=== PATIENT | female | born 1945 | race Caucasian/White ===

== ENCOUNTER → 2023-10-24 07:45 | Outpatient (REF) | payer OTHER, SELFPAY ==
[2023-10-24 09:04] LABS: % Basophils 0.6 % (0-2); % Eosinophils 1.4 % (0-6); % Immature Granulocytes 0.8 % (0-0.5); % Monocytes 10.7 % (1.7-9.3); % Neutrophils 55.5 % (42.2-75.2); Absolute Eosinophils 0.1 10^3/uL (0-0.7); Absolute Immature Granulocytes 0.1 10^3/uL (0-0.05); Absolute Lymphocytes 2.2 10^3/uL (1.2-3.4); Absolute Monocytes 0.8 10^3/uL (0.1-0.6); Hematocrit 39.2 % (37.0-47.0); Mean Corp Hgb Conc. 33.2 g/dL (33.0-37.0); Mean Corpuscular Hgb 30.4 pg (27.0-31.0); Mean Corpuscular Volume 91.6 fL (81.0-99.0); Mean Platelet Volume 10.8 fL (7.4-10.4); Nucleated Red Blood Cells % 0 %; Platelet Count 255 10^3/uL (130-400); Red Blood Cell Count 4.28 10^6/uL (4.20-5.40); Red Cell Dist. Width 13.9 % (11.5-14.5); White Blood Cell Count 7.1 10^3/uL (4.8-10.8)
[2023-10-24 09:30] LABS: ALT (SGPT) 23 U/L (0-35); AST (SGOT) 26 U/L (14-36); Alkaline Phosphatase 91 U/L (38-126); Blood Urea Nitrogen 20 mg/dl (7-17); Calcium 10.1 mg/dl (8.4-10.2); Carbon Dioxide 27 mmol/L (22-30); Chloride 103 mmol/L (98-107); Glucose 91 mg/dl (70-99); HDL Cholesterol 70 mg/dl; LDL Cholesterol, Calculated 98 mg/dl; Potassium 4.3 mmol/L (3.5-5.1); Sodium 138 mmol/L (135-145); Total Bilirubin 0.5 mg/dl (0.2-1.3); Total Cholesterol 193 mg/dl (50-199); Total Protein 6.3 g/dl (6.3-8.2); Triglyceride 125 mg/dl (10-149); Very Low Density Lipoprotein 25 mg/dl (0-30); eGFR 57.66
[2023-10-24 10:00] LABS: Vitamin D, 25-OH*** 53.9 ng/mL (30-80)
[2023-10-24 10:14] LABS: TSH 2.87 uIU/ml (0.47-4.68)
[2023-10-24 10:50] LABS: Folate > 20.0 ng/ml (2.76-20); Vitamin B12 731 pg/ml (239-931)
[2023-10-25 19:49] LABS: Beta-2-Microglobulin 2.1 mg/L (<=3.0)
[2023-10-27 13:28] LABS: Albumin 3.99 g/dL (3.75-5.01); Alpha 1 Globulin 0.29 g/dL (0.19-0.46); Alpha 2 Globulin 0.78 g/dL (0.48-1.05); Free Lambda Light Chains,Quant 12.79 mg/L (5.71-26.30); IgA 61 mg/dL (68-408); IgG 602 mg/dL (768-1632); IgM 216 mg/dL (35-263); Immunofixation Electrophoresis IFE Done; Kappa/Lambda Fr Light Ratio 1.67 (0.26-1.65); Total Protein-Electrophoresis 6.4 g/dL (6.3-8.2)
== END ==
LOC: HWLAB 07:45
PROVIDERS: ATTENDING PHYSICIAN Internal Medicine Hematology & Oncology; FAMILY PHYSICIAN Internal Medicine Geriatric Medicine; OTHER PHYSICIAN Physician Assistant Medical; REFERRING PHYSICIAN Internal Medicine Rheumatology
DX: R35.0 Frequency of micturition (principal); K21.9 Gastro-esophageal reflux disease without esophagitis; K58.9 Irritable bowel syndrome, unspecified; R68.89 Other general symptoms and signs; K57.32 Diverticulitis of large intestine without perforation or abscess without bleeding; E55.9 Vitamin D deficiency, unspecified; R41.9 Unspecified symptoms and signs involving cognitive functions and awareness; M16.11 Unilateral primary osteoarthritis, right hip; M51.36 Other intervertebral disc degeneration, lumbar region; Z13.89 Encounter for screening for other disorder; G31.84 Mild cognitive impairment of uncertain or unknown etiology; D47.2 Monoclonal gammopathy; K21.00 Gastro-esophageal reflux disease with esophagitis, without bleeding; M81.0 Age-related osteoporosis without current pathological fracture; Z51.81 Encounter for therapeutic drug level monitoring
CPT/HCPCS: 36415; 80053; 80061; 82232; 82306; 82607; 82746; 82784; 83521; 84155; 84165; 84443; 85025; 86334

== ENCOUNTER → 2024-03-07 10:33 | Outpatient (REF) | payer OTHER, SELFPAY | LOC: HWWDC 10:33 | PROVIDERS: ATTENDING PHYSICIAN Internal Medicine Geriatric Medicine | DX: Z12.31 Encounter for screening mammogram for malignant neoplasm of breast (principal) | CPT/HCPCS: 77063; 77067 ==

== ENCOUNTER → 2024-04-30 08:04 | Outpatient (REF) | payer OTHER, SELFPAY ==
[2024-04-30 09:54] LABS: % Basophils 0.3 % (0-2); % Eosinophils 1.5 % (0-6); % Immature Granulocytes 2.3 % (0-0.5); % Lymphocytes 22.1 % (20.5-51.1); % Monocytes 9.1 % (1.7-9.3); % Neutrophils 64.7 % (42.2-75.2); Absolute Eosinophils 0.1 10^3/uL (0-0.7); Absolute Immature Granulocytes 0.2 10^3/uL (0-0.05); Absolute Monocytes 0.8 10^3/uL (0.1-0.6); Absolute Neutrophils 5.7 10^3/uL (1.4-6.5); Hematocrit 38.8 % (37.0-47.0); Mean Corp Hgb Conc. 33.5 g/dL (33.0-37.0); Mean Corpuscular Hgb 30.9 pg (27.0-31.0); Mean Corpuscular Volume 92.2 fL (81.0-99.0); Mean Platelet Volume 10.2 fL (7.4-10.4); Nucleated Red Blood Cells % 0 %; Platelet Count 262 10^3/uL (130-400); Red Blood Cell Count 4.21 10^6/uL (4.20-5.40); White Blood Cell Count 8.9 10^3/uL (4.8-10.8)
[2024-04-30 10:31] LABS: ALT (SGPT) 26 U/L (0-35); AST (SGOT) 24 U/L (14-36); Albumin 3.8 g/dl (3.5-5.0); Alkaline Phosphatase 93 U/L (38-126); Blood Urea Nitrogen 23 mg/dl (7-17); Calcium 9.9 mg/dl (8.4-10.2); Carbon Dioxide 30 mmol/L (22-30); Chloride 101 mmol/L (98-107); Glucose 83 mg/dl (70-99); HDL Cholesterol 91 mg/dl; LDL Cholesterol, Calculated 116 mg/dl; Potassium 4.4 mmol/L (3.5-5.1); Sodium 139 mmol/L (135-145); Total Bilirubin 0.4 mg/dl (0.2-1.3); Total Cholesterol 225 mg/dl (50-199); Total Protein 6.1 g/dl (6.3-8.2); Triglyceride 92 mg/dl (10-149); Very Low Density Lipoprotein 18 mg/dl (0-30); eGFR > 60.00
[2024-04-30 10:51] LABS: Vitamin D, 25-OH*** 54.4 ng/mL (30-80)
[2024-04-30 11:32] LABS: Folate > 20.0 ng/ml (2.76-20); Vitamin B12 623 pg/ml (239-931)
[2024-04-30 12:59] LABS: Urine Albumin Negative (Neg - Trace); Urine Bilirubin Negative (Negative); Urine Character Clear (Clear); Urine Color Yellow; Urine Glucose Negative (Negative); Urine Ketone Negative (Negative); Urine Leukocyte 2+ (Negative); Urine Nitrite Negative (Negative); Urine Occult Blood Negative (Negative); Urine Urobilinogen Negative (Neg - 1+)
[2024-04-30 13:42] LABS: Urine Bacteria Few (Negative); Urine Red Blood Cell 0-2 /HPF (0-2)
== END ==
LOC: HWLAB 08:04
PROVIDERS: ATTENDING PHYSICIAN Internal Medicine Rheumatology; FAMILY PHYSICIAN Internal Medicine Geriatric Medicine
DX: Z00.00 Encounter for general adult medical examination without abnormal findings (principal); F33.1 Major depressive disorder, recurrent, moderate; K21.9 Gastro-esophageal reflux disease without esophagitis; E78.5 Hyperlipidemia, unspecified; E55.9 Vitamin D deficiency, unspecified; R41.89 Other symptoms and signs involving cognitive functions and awareness; M54.16 Radiculopathy, lumbar region; Z13.89 Encounter for screening for other disorder; Z23 Encounter for immunization; M81.0 Age-related osteoporosis without current pathological fracture; Z51.81 Encounter for therapeutic drug level monitoring
CPT/HCPCS: 36415; 80053; 80061; 81003; 81015; 82306; 82607; 82746; 85025

== ENCOUNTER → 2024-07-03 13:16 | Outpatient (REF) | payer OTHER, SELFPAY | LOC: HWRAD 13:16 | PROVIDERS: ATTENDING PHYSICIAN Internal Medicine Rheumatology; FAMILY PHYSICIAN Internal Medicine Geriatric Medicine; REFERRING PHYSICIAN Obstetrics & Gynecology Gynecology | DX: M81.0 Age-related osteoporosis without current pathological fracture (principal) | CPT/HCPCS: 77080 ==

== ENCOUNTER → 2024-08-04 08:22 | Outpatient (REF) | payer OTHER, SELFPAY | LOC: PAVMRI 08:22 | PROVIDERS: ATTENDING PHYSICIAN Specialist; FAMILY PHYSICIAN Internal Medicine Geriatric Medicine; REFERRING PHYSICIAN Psychiatry & Neurology Neurology | DX: M54.16 Radiculopathy, lumbar region (principal) | CPT/HCPCS: 72148 ==

== ENCOUNTER → 2024-08-13 08:58 | Outpatient (REF) | payer OTHER, SELFPAY ==
[2024-08-13 10:15] LABS: Iron 105 ug/dl (37-170)
[2024-08-13 10:24] LABS: Percent Saturation 36 % (20-50); Total Iron Binding Capacity 288 ug/dl (265-497)
[2024-08-13 10:30] LABS: Vitamin D, 25-OH*** 57.1 ng/mL (30-80)
[2024-08-13 10:39] LABS: Erythrocyte Sed Rate 10 mm/hour (0-20)
[2024-08-13 11:20] LABS: Folate > 20.0 ng/ml (2.76-20); Vitamin B12 742 pg/ml (239-931)
[2024-08-14 15:38] LABS: Angiotensin-1-converting Enzym 48 U/L (16-85)
[2024-08-15 03:52] LABS: Vitamin D 1,25 Dihydroxy 72.3 pg/mL (19.9-79.3)
[2024-08-15 07:13] LABS: SSA 52 (Ro)(ENA) Ab, IgG 1 AU/mL (0-40); SSA 60 (Ro)(ENA) Ab, IgG 0 AU/mL (0-40); SSB (La)(ENA) Ab, IgG 0 AU/mL (0-40)
[2024-08-15 16:26] LABS: Lyme Antibody Screen, EIA Negative (Negative)
[2024-08-15 21:43] LABS: IgA 52 mg/dL (68-408); IgG 526 mg/dL (768-1632); IgM 229 mg/dL (35-263)
[2024-08-16 03:43] LABS: Albumin 3.92 g/dL (3.75-5.01); Alpha 1 Globulin 0.29 g/dL (0.19-0.46); Alpha 2 Globulin 0.73 g/dL (0.48-1.05); SPEP IFE Reflex IFE Done; Total Protein-Electrophoresis 6.2 g/dL (6.3-8.2)
[2024-08-16 07:23] LABS: Vitamin B6 Results 175.9 nmol/L (20.0-125.0)
== END ==
LOC: REG 08:58
PROVIDERS: ATTENDING PHYSICIAN Psychiatry & Neurology Neurology; FAMILY PHYSICIAN Internal Medicine Geriatric Medicine
DX: M54.16 Radiculopathy, lumbar region (principal)
CPT/HCPCS: 36415; 82164; 82306; 82607; 82652; 82746; 82784; 83540; 83550; 84155; 84165; 84207; 84425; 84446; 85652; 86235; 86334; 86618

== ENCOUNTER → 2024-10-29 08:16 | Outpatient (REF) | payer OTHER, SELFPAY ==
[2024-10-29 11:25] LABS: ALT (SGPT) 15 U/L (0-35); AST (SGOT) 22 U/L (14-36); Albumin 4.2 g/dl (3.5-5.0); Alkaline Phosphatase 77 U/L (38-126); Blood Urea Nitrogen 18 mg/dl (7-17); Calcium 9.6 mg/dl (8.4-10.2); Carbon Dioxide 26 mmol/L (22-30); Chloride 104 mmol/L (98-107); Glucose 93 mg/dl (70-99); Potassium 4.4 mmol/L (3.5-5.1); Sodium 140 mmol/L (135-145); Total Bilirubin 0.6 mg/dl (0.2-1.3); Total Protein 6.3 g/dl (6.3-8.2); eGFR > 60.00
[2024-10-29 11:26] LABS: % Basophils 0.7 % (0-2); % Eosinophils 1.5 % (0-6); % Immature Granulocytes 0.4 % (0-0.5); % Lymphocytes 26.5 % (20.5-51.1); % Monocytes 9.7 % (1.7-9.3); % Neutrophils 61.2 % (42.2-75.2); Absolute Basophils 0.1 10^3/uL (0-0.2); Absolute Eosinophils 0.1 10^3/uL (0-0.7); Absolute Lymphocytes 1.8 10^3/uL (1.2-3.4); Absolute Monocytes 0.7 10^3/uL (0.1-0.6); Absolute Neutrophils 4.2 10^3/uL (1.4-6.5); Hematocrit 39.3 % (37.0-47.0); Hemoglobin 12.9 g/dL (12.0-16.0); Mean Corp Hgb Conc. 32.8 g/dL (33.0-37.0); Mean Corpuscular Hgb 29.9 pg (27.0-31.0); Mean Corpuscular Volume 91.2 fL (81.0-99.0); Mean Platelet Volume 11.2 fL (7.4-10.4); Nucleated Red Blood Cells % 0 %; Platelet Count 245 10^3/uL (130-400); Red Blood Cell Count 4.31 10^6/uL (4.20-5.40); White Blood Cell Count 6.8 10^3/uL (4.8-10.8)
[2024-10-29 11:41] LABS: Vitamin D, 25-OH*** 58.6 ng/mL (30-80)
[2024-10-31 12:55] LABS: Beta-2-Microglobulin 2.2 mg/L (<=3.0)
== END ==
LOC: HWLAB 08:16
PROVIDERS: ATTENDING PHYSICIAN Internal Medicine Hematology & Oncology; FAMILY PHYSICIAN Internal Medicine Geriatric Medicine; REFERRING PHYSICIAN Internal Medicine Rheumatology
DX: E55.9 Vitamin D deficiency, unspecified (principal); M81.0 Age-related osteoporosis without current pathological fracture; D47.2 Monoclonal gammopathy
CPT/HCPCS: 36415; 80053; 82232; 82306; 82784; 83521; 84155; 84165; 85025; 86334

== ENCOUNTER → 2024-11-06 10:43 | Outpatient (REF) | payer OTHER, SELFPAY | LOC: HWRAD 10:43 | PROVIDERS: ATTENDING PHYSICIAN Nurse Practitioner Adult Health; FAMILY PHYSICIAN Internal Medicine Geriatric Medicine; REFERRING PHYSICIAN Orthopaedic Surgery Orthopaedic Surgery of the Spine | DX: M48.062 Spinal stenosis, lumbar region with neurogenic claudication (principal); M54.16 Radiculopathy, lumbar region; M47.816 Spondylosis without myelopathy or radiculopathy, lumbar region | CPT/HCPCS: 72110; 72131 ==

== ENCOUNTER → 2024-12-20 14:19 | Outpatient (REF) | payer OTHER, SELFPAY | LOC: RAD 14:19 | PROVIDERS: ATTENDING PHYSICIAN Internal Medicine Geriatric Medicine; REFERRING PHYSICIAN Internal Medicine Cardiovascular Disease | DX: I70.0 Atherosclerosis of aorta (principal) | CPT/HCPCS: 76770 ==

== ENCOUNTER → 2025-02-04 08:07 | Outpatient (REF) | payer OTHER, SELFPAY | LOC: HWRCS 08:07 | PROVIDERS: ATTENDING PHYSICIAN Internal Medicine Cardiovascular Disease; FAMILY PHYSICIAN Internal Medicine Geriatric Medicine | DX: I70.0 Atherosclerosis of aorta (principal); Z82.49 Family history of ischemic heart disease and other diseases of the circulatory system; E78.5 Hyperlipidemia, unspecified | CPT/HCPCS: 93306 ==

== ENCOUNTER → 2025-03-11 09:41 | Outpatient (REF) | payer OTHER, SELFPAY | LOC: HWWDC 09:41 | PROVIDERS: ATTENDING PHYSICIAN Obstetrics & Gynecology; FAMILY PHYSICIAN Internal Medicine Geriatric Medicine | DX: Z12.31 Encounter for screening mammogram for malignant neoplasm of breast (principal) | CPT/HCPCS: 77063; 77067 ==

== ENCOUNTER → 2025-03-19 08:58 | Outpatient (REF) | payer OTHER, SELFPAY | LOC: WDC 08:58 | PROVIDERS: ATTENDING PHYSICIAN Obstetrics & Gynecology; FAMILY PHYSICIAN Internal Medicine Geriatric Medicine | DX: R92.8 Other abnormal and inconclusive findings on diagnostic imaging of breast (principal) | CPT/HCPCS: 76642 ==

== ENCOUNTER → 2025-03-27 08:43 | Outpatient (REF) | payer OTHER, SELFPAY ==
[2025-03-27 12:13] LABS: Hematocrit 41.0 % (37.0-47.0); Hemoglobin 13.5 g/dL (12.0-16.0); Mean Corp Hgb Conc. 32.9 g/dL (33.0-37.0); Mean Corpuscular Volume 90.7 fL (81.0-99.0); Nucleated Red Blood Cells % 0 %; Platelet Count 271 10^3/uL (130-400); Red Cell Dist. Width 14.4 % (11.5-14.5)
[2025-03-27 12:20] LABS: Urine Character Clear (Clear)
[2025-03-27 12:44] LABS: ALT (SGPT) 24 U/L (0-35); AST (SGOT) 21 U/L (14-36); Albumin 4.4 g/dl (3.5-5.0); Alkaline Phosphatase 65 U/L (38-126); Blood Urea Nitrogen 28 mg/dl (7-17); Calcium 9.8 mg/dl (8.4-10.2); Carbon Dioxide 29 mmol/L (22-30); Chloride 103 mmol/L (98-107); Glucose 86 mg/dl (70-99); HDL Cholesterol 94 mg/dl; LDL Cholesterol, Calculated 63 mg/dl; Potassium 4.1 mmol/L (3.5-5.1); Sodium 139 mmol/L (135-145); Total Protein 6.6 g/dl (6.3-8.2); Very Low Density Lipoprotein 20 mg/dl (0-30); eGFR > 60.00
[2025-03-27 13:01] LABS: Vitamin D, 25-OH*** 52.4 ng/mL (30-80)
[2025-03-27 13:14] LABS: TSH 2.39 uIU/ml (0.47-4.68)
[2025-03-28 09:49] LABS: CRP, Ultra Sensitive < 0.30 mg/L (0.30-5.00)
== END ==
LOC: WDC 08:43
PROVIDERS: ATTENDING PHYSICIAN Obstetrics & Gynecology; FAMILY PHYSICIAN Internal Medicine Geriatric Medicine; OTHER PHYSICIAN Internal Medicine Cardiovascular Disease; REFERRING PHYSICIAN Physician Assistant
DX: N63.20 Unspecified lump in the left breast, unspecified quadrant (principal); E55.9 Vitamin D deficiency, unspecified; M81.0 Age-related osteoporosis without current pathological fracture; Z82.49 Family history of ischemic heart disease and other diseases of the circulatory system; I70.0 Atherosclerosis of aorta; E78.5 Hyperlipidemia, unspecified
CPT/HCPCS: 19000; 36415; 76942; 80053; 80061; 81003; 82306; 84443; 85025; 86141; 88112

== ENCOUNTER → 2025-05-14 10:10 | Outpatient (REF) | payer OTHER, SELFPAY | LOC: REG 10:10 | PROVIDERS: ATTENDING PHYSICIAN Internal Medicine Geriatric Medicine | DX: K21.9 Gastro-esophageal reflux disease without esophagitis (principal); E78.5 Hyperlipidemia, unspecified; Z87.19 Personal history of other diseases of the digestive system; E55.9 Vitamin D deficiency, unspecified; F33.3 Major depressive disorder, recurrent, severe with psychotic symptoms; M16.11 Unilateral primary osteoarthritis, right hip; M81.0 Age-related osteoporosis without current pathological fracture; Z13.89 Encounter for screening for other disorder; Z23 Encounter for immunization; M79.10 Myalgia, unspecified site; G72.2 Myopathy due to other toxic agents | CPT/HCPCS: 36415; 82085; 82550 ==

== ENCOUNTER → 2025-06-06 09:12 | Outpatient (REF) | payer OTHER, SELFPAY | LOC: DHVS 09:12 | PROVIDERS: ATTENDING PHYSICIAN Internal Medicine Cardiovascular Disease; FAMILY PHYSICIAN Internal Medicine Geriatric Medicine | DX: I73.9 Peripheral vascular disease, unspecified (principal) | CPT/HCPCS: 93922; 93925 ==